=== PATIENT | male | born 1960 | race Caucasian/White ===

== ENCOUNTER 2019-01-23 08:18 | Day surgery (SDC) | payer BC, SELFPAY ==
--- NOTE | 2019-01-12 06:37 | PCM.HP.BLA ---
History and Physical Date of Admission: 01/16/19 HISTORY AND PHYSICAL ? Wilbert Cash . 1960 ? ? REFERRING PHYSICIAN: ??Mendez Kam, DO ? CHIEF COMPLAINT: ??Consult ? 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 ?The patient denies a prior history of central venous access. ? ? The patient is?right?hand dominant. ? ? The patient is being seen by me today at the request of ?Eddy?for my opinion and advice regarding port placement.? ? ? PAST?MEDICAL?HISTORY PAST MEDICAL HISTORY Diagnosis Date ? Duodenal cancer (HCC) ? ? GERD (gastroesophageal reflux disease) ? ? Hyperlipidemia ? ? ? PAST?SURGICAL?HISTORY PAST SURGICAL HISTORY Procedure Laterality Date ? COLONOSCOPY ? 2012 ? EGD ? 10/01/2018 ? PAST SURGICAL HISTORY OF ? 11/30/2018 ? diagnostic lap, pancreaticoduodenectomy with distal gastrectomy, wound vac placement ? ? CURRENT?MEDICATIONS ? Current Outpatient Medications: lidocaine-prilocaine (EMLA) cream APPLY TO PORT SITE 60 MINUTES PRIOR TO CHEMOTHERAPY Disp: 15 g Rfl: 1 simvastatin (ZOCOR) 20 mg tablet Take 20 mg by mouth once daily. Disp: Rfl: Omeprazole Magnesium (PRILOSEC OTC) 20 mg tablet Take 20 mg by mouth once daily. Disp: Rfl: ondansetron (ZOFRAN) 8 mg tablet Take 1 tablet by mouth every 8 hours as needed (For chemotherapy induced nausea). FOR NAUSEA (Patient not taking: Reported on 01/10/2019 ) Disp: 30 tablet Rfl: 2 ? No current facility-administered medications for this visit.? ? ALLERGIES:?Patient has no known allergies. ? PERSONAL HISTORY:? SOCIAL?HISTORY Social History ??Socioeconomic History ?Marital status: ?Spouse name: Not on file ?Number of children: Not on file ?Years of education: Not on file ?Highest education level: Not on file ??Social Needs ?Financial resource strain: Not on file ?Food insecurity - worry: Not on file ?Food insecurity - inability: Not on file ?Transportation needs - medical: Not on file ?Transportation needs - non-medical: Not on file ??Occupational History ?Not on file ??Tobacco Use ?Smoking status: Never Smoker ?Smokeless tobacco: Never Used ??Substance and Sexual Activity ?Alcohol use: Never ?Frequency: Never ?Drug use: Never ?Sexual activity: Not on file ??Other Topics ?Concerns: ? Service: Not Asked ?Blood Transfusions: Not Asked ?Caffeine Concern: No ?Occupational Exposure: Not Asked ?Hobby Hazards: Not Asked ?Sleep Concern: Not Asked ?Stress Concern: Not Asked ?Weight Concern: Not Asked ?Special Diet: No ?Back Care: Not Asked ?Exercise: Yes ?walks a lot at work ?Bike Helmet: Not Asked ?Seat Belt: Not Asked ?Self-Exams: Not Asked ??Social History Narrative ?Not on file ? FAMILY HISTORY:? FAMILY?HISTORY FAMILY HISTORY Problem Relation Age of Onset ? Heart Mother ? ? Stroke Father ? ? Heart Father ? ? Heart Sister ? ? Heart Brother ? ? Heart Brother ? ? other (Lung Cancer) Brother ? ? Cancer Paternal Grandfather ?Colon ? REVIEW OF SYMPTOMS: ??The review of systems data was entered by the nurse and reviewed by me ? Nursing Notes: Vicki Bains RN ?01/10/2019 ?3:09 PM ?Signed REVIEW OF SYSTEMS: ?General:???The patient denies fatigue, notes weight loss, denies weight gain, denies feeling hot, and denies feelings of cold. ?Eyes: ?The patient denies glaucoma, denies eye injury/surgery, wears glasses or contacts. ?Ear/Nose/Throat: ?The patient denies allergies, denies hayfever, denies ear infections, and denies bloody noses. ?Cardiovascular: ?The patient denies chest pain, denies heart disease, denies high blood pressure,denies cardiac stent, denies prior heart attack, denies irregular heart beat, notes high cholesterol, ?denies poor circulation, denies heart failure, other cardiac issues, denies claudication, denies cold feet, denies peripheral arterial stent. ?Respiratory: ?The patient denies tuberculosis, denies pneumonia, denies frequent cough, denies pulmonary embolism, denies shortness of breath, and denies coughing up blood. ?Gastrointestinal: ?The patient denies difficulty swallowing, notes acid reflux, denies ulcers, denies vomiting, denies jaundice/hepatitis, denies gallbladder problems, denies black or tarry stools, denies hemorrhoids, denies bleeding from rectum, notes diverticulitis, denies constipation, denies diarrhea, denies loss of stool control, and denies hernias. ?Kidney/Bladder: ?The patient denies kidney stones, denies urine infections, and denies bloody urine. ?Skin: ?The patient denies a history of skin cancer, denies bleeding/changing moles, and denies a history of skin rash. ?Neurologic: ?The patient denies a history of epilepsy/convulsions, denies headaches, denies head/spinal injuries, and denies stroke/TIA. ?Psychiatric: ?The patient denies psychiatric medications, denies depression, and denies voices, denies substance abuse. ?Endocrine: ?The patient denies thyroid disorders, denies diabetes, and denies hormonal problems. ?Hematologic: ?The patient denies a history of bruising, denies bleeding, and denies anemia, denies blood clots. ?Infections: ?The patient denies a history of measles and mumps, denies rheumatic fever, and denies sexually transmitted diseases. ?Musculoskeletal: ?The patient denies back pain/injury, denies back problems, denies sciatica, denies knee/foot trouble, denies arthritis, or denies gout. ? ? When was patient's last Mammogram screening? N/A ? ?Last Colonoscopy: ?2012 ? Vicki Bains RN? I have confirmed and edited as necessary, the PFSH and ROS obtained by others. ? ? PHYSICAL EXAMINATION: ? General: ?The patient is 58 year old male, well nourished, well hydrated in no acute distress. ?The patient is oriented to time, place, and person. ? VITALS:?Blood pressure 112/64, pulse 94, temperature 37.4 ?C (99.3 ?F), temperature source Temporal Artery, weight 71 kg (156 lb 9.6 oz), SpO2 99 %.?Body mass index is 26.88 kg/m?.? ? HEENT: ?Normal cephalic, ataumatic, pupils are equally round, sclera are anicteric, mucous membranes are moist, oropharynx is clear. ?Neck has no masses, asymmetry or lymphadenopathy. ? Respiratory: ?Clear to auscultation and percussion. ?Normal respiratory excursion and pattern. ? Cardiac: ?Examination is regular rate and rhythm. ? Abdominal exam: ?Soft, nontender, ?with no palpable masses. ?No hepatosplenomegaly. ?No palpable hernias. ? Rectal exam:??exam deferred ? Extremities: ?no clubbing, cyanosis or edema. ?No adenopathy. ? Other: ? ? LABORATORY VALUES: As Noted ? RADIOLOGIC STUDIES: ?As Noted ? Assessment ? IMPRESSION:??Duodenal cancer, need for IV access ? PLAN:???Dr. Polanco also evaluated the patient and participated in development of the following plan. ?He?plans?to perform a left subclavian?port a cath placement. ?The planned surgical procedure was discussed extensively with the patient. ?The risks, benefits, anticipated outcomes and possible complications were mentioned. ?My staff has also explained the procedure in understandable terms and the patient was given the option to take printed material concerning the planned procedure. ?The patient had the opportunity to ask questions concerning the planned procedure. ?The patient freely consents to the planned procedure. ? Planned Procedure:???[facility] [id number] ? Patient Weight ?Last 1 Encounter Wt Readings: ???Date: ?Wt: ???01/10/2019 ??71 kg (156 lb 9.6 oz) ? Antibiotic:???Ancef 2gm IVPB academic interventionist to OR ? Planned Anesthetic:?MAC with local? Dr. Polanco may?plan to access the port at the time of surgery. ? Diagnoses:?(C17.0) Duodenal cancer (HCC) ?(primary encounter diagnosis) ? ? Kenya Awad PA-C ? ? This patient was seen in conjunction with Kenya Awad PA-C, ?I reviewed the above note, discussed the pertinent history and examined the patient and agreed with the above examination. ?We have discussed the diagnosis and plan. ?Those plans have been communicated to the patient. ? ? Sean Polanco MD
[2019-01-23] VITALS (8 sets, daily range): BP systolic 109–119; BP diastolic 65–78; PULSE 83–98; RESP 16–18; TEMP 36.7–37.6; O2SAT 97–100; BMI 26.6
--- NOTE | 2019-01-23 14:27 | DCINST_ITS ---
Discharge Diet: No Restrictions - Pain medication may cause nausea. You should typically eat light foods as you take your pain medication. Discharge Activity: Return to Normal Activity, May Shower - with the bandage in place 1-2 days after surgery. DO NOT SHOWER WHEN YOUR PORT IS ACCESSED. Additional Activity Instructions:: May not drive, work with heavy equipment, or sign legal documents for [address] if you are no longer taking narcotic pain medications. You may drive when you are no longer taking pain medications. Additional Dressing/Incision Instructions:: Leave the bandage on for 2-3 days. When you remove the bandage, leave the steri-strips intact until they fall off. Allergies/Adverse Reactions: Allergies No Known Allergies Allergy (Verified 01/23/19 09:14) Medications to take at Discharge Omeprazole [Prilosec] 20 mg PO DAILY 12/24/15 Simvastatin [Zocor] 40 mg PO QHS 12/24/15 Primary Care Physician: Sean Murry, REC[facility] [Primary Care Provider] - Test Results: Test results from this visit will be discussed in further detail at your follow- up appointment, if applicable. Please Follow Up With: Sean Polanco MD - [phone] When: Please plan to follow up in 7 days in the office.
--- NOTE | 2019-01-23 14:27 | PCM.OPRPT ---
Report of Operation Date of Procedure: 01/23/19 Pre-Operative Diagnosis: duodenal cancer, need for IV Access Post-Operative Diagnosis: duodenal cancer, need for IV Access Surgery/Procedure Performed:: left subclavian portacath with powerport and fluoroscopy foundry patternmaker: None Type of Anesthesia:: Local MAC Anesthesiologist: Timo Gabriel - ASA3 Specimen's removed: None Estimated Blood Loss (mL): 5 Fluids Replaced: 500 Description of Procedure: The patient was brought to the operating suite. The left subclavian site was marked in the holding area and the patient concurred this was the planned operative site. Sign was performed verifying patient, site, position, skip antibiotic prophylaxis-2 g of Ancef and DVT prophylaxis with SCDs. Following IV sedation, the left neck and chest were prepped and draped in the usual fashion. Timeout was performed verifying patient, site, position. Local anesthetic was injected and a Seldinger needle was used to access the left subclavian vein without difficulty. Under fluoroscopic control, a guidewire was inserted and advanced the SVC RA region. Local anesthetic was injected and incision made and pocket created for the port site. Next the catheter was tunneled from the wire site incision to the port site incision. Under fluoroscopic control introducer sheath and dilator were inserted over the wire. The wire and dilator removed. The catheter was fed through the introducer suture sheath and adjusted to the SVC RA region. There was good return of venous blood and easy inflow of saline through the system. Fluoroscopy demonstrated good positioning of the catheter. Next the catheter was cut to length affixed to the port with the locking ring and secured in the pocket with 2-2-0 Prolene sutures. Subcutaneous fat closed with interrupted 3-0 Vicryl suture. Skin closed with 4-0 Biosyn interrupted and running subcuticular sutures. Fluoroscopy demonstrated good position of the system. The port was accessed. There was good return of venous blood. Inflow of saline was easy. The port was then flushed with 2-3 cc of 100 unit per heparin solution. A dressing was applied. The patient was brought to recovery room in stable condition. Grafts/Implants Used: powerport [id number] lot [id number] exp - 07/27/2020
[2019-01-23] MEDS: Cefazolin 2 GM in 0.9% Normal Saline 100 ML IV (14:35)
[2019-01-23] MEDS: Bupivacaine Mpf 0.5% 30 ML VIAL (15:07)
--- NOTE | 2019-01-23 15:10 | RAD_ITS ---
STUDY: X-RAY CHEST REASON FOR EXAM: Male, 58 years old. Port placement. TECHNIQUE: Single AP portable view of the chest. COMPARISON: Comparison is made with prior examination dated December 24, 2015. FINDINGS: A left-sided portacatheter has been placed. The tip is at the junction of the superior vena cava and right atrium. Mild increased markings at the left lung base suggestive of left basilar atelectasis. Blunting of the left costophrenic angle. Normal size heart. Normal mediastinum and moe. Normal visualized pulmonary arteries. Normal visualized aortic arch and descending thoracic aorta. Normal visualized thoracic spine. Normal visualized ribs, clavicles, and shoulders. There is no demonstrated abnormality of the visualized soft tissue structures of the upper abdomen. RAD/CXR for Line Placement IMPRESSION: The tip of the left brianda catheter is at the junction of superior vena cava and right atrium. Mild left basilar atelectasis and blunting of the left costophrenic angle. Electronically Signed: Rafa Lopez, at 15:39 EDT , Service support ,
== END 2019-01-23 16:09 | disposition home or self-care (01) ==
LOC: SDC 08:21 → AC 08:22
PROVIDERS: Family Provider Nurse Practitioner Family; PCP Nurse Practitioner Family; Referring Provider Surgery; Visit Provider Surgery
PROC: (CPT 36561; principal; 2019-01-23 09:45)
DX: Z45.2 Encounter for adjustment and management of vascular access device (principal); C17.0 Malignant neoplasm of duodenum; K21.9 Gastro-esophageal reflux disease without esophagitis; E78.5 Hyperlipidemia, unspecified; Z79.899 Other long term (current) drug therapy; F32.9 Major depressive disorder, single episode, unspecified; Z90.411 Acquired partial absence of pancreas
CPT/HCPCS: 36561; 71045; 77001; J7120; C1788

== ENCOUNTER → 2020-01-27 | Outpatient (CLI) | payer OTHER, SELFPAY ==
[2019-01-23 09:34] VITALS: BMI 26.6
--- NOTE | 2020-01-27 08:40 | FLU_PTH ---
PATIENT: JAMIE CASAS Jr. LOC: [facility] U#:[id number] AGE/SX: 59/M ROOM: RE01/27/[address]: Dr. Ct Melvin MD : 1960 BED: DIS: 01/27/2020 SPEC #: [id number] RECD: 01/27/20 15:06 STATUS: PHONG REKaylee #: [id number] HARI: 01/27/20 08:[address]: Ct Melvin DEPT: CYTOLOGY RECD BY: Armani Baker ENTERED: 01/28/20 09:26 SP TYPE: Fluid OTHR DR: DO Sean Forrester, JAVA TECH LEAD-C Tissues: A - Thyroid gland, NOS B - Thyroid gland, NOS Procedures: Special Stain Group II Surgery Specimen Level IV Cytospin Fluid Cytology Other HEADER OPERATION: Ultrasound-guided fine needle aspiration of right thyroid PRE-OP DIAGNOSIS: Thyroid nodules TISSUE SUBMITTED: A - FNA right thyroid fluid for cytology, B - FNA right thyroid 6 slides DIAGNOSIS CYTOLOGY A. Right thyroid nodule fluid, ultrasound-guided FNA (cytospin and cell block): Benign follicular cells noted. B. Right thyroid nodule, FNA (smears): Consistent with benign follicular/colloid nodule. Adequate for evaluation. See comment. SADIE:carlos 01/29/20 COMMENT Correlation with clinical, radiologic findings and appropriate follow up are necessary. CYTOLOGY STUDY Slides are reviewed. CYTOLOGY GROSS A - Received is 30 ml of brown cloudy fluid labeled with the patient's name and and designated per the requisition as right thyroid. Submitted for cytology preparation including cell block. B - Received are six smears labeled with the patient's name and designated per the requisition as right thyroid. Submitted for staining. / carlos 01/28/20 TC:5 CPT: 92029, 45228, 47561
== END | disposition home or self-care (01) ==
PROVIDERS: PCP Nurse Practitioner Family; Visit Provider Surgery
DX: E04.1 Nontoxic single thyroid nodule (principal)
CPT/HCPCS: 88108; 88161; 88305; 88313